=== PATIENT | female | born 1995 | race Caucasian/White ===

== ENCOUNTER 2022-04-18 12:00 | Inpatient (IN) | payer MEDICAID, SELFPAY ==
[2022-04-18 12:03] VITALS: BMI 25.7
[2022-04-18 12:04] VITALS: BP 117/72; PULSE 71; RESP 18; TEMP 36.8; O2SAT 96
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
[2022-04-18 14:00] VITALS: BP 124/78; PULSE 94; RESP 18; TEMP 36.8; O2SAT 98
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
[2022-04-18 20:04] VITALS: BP 109/69; PULSE 86; RESP 18; TEMP 36.8; O2SAT 95
[2022-04-18] MEDS: trazodone 50 mg Tablet PO (20:32)
[2022-04-18] MEDS: BuSPIRONE 10 mg Tablet PO (20:32)
[2022-04-18] MEDS: duloxetine 60 mg Capsule PO (20:32)
[2022-04-19 06:00] VITALS: BP 109/66; PULSE 64; RESP 18; TEMP 36.7; O2SAT 97
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
[2022-04-19 09:59] VITALS: BP 109/66; PULSE 64; RESP 18; TEMP 36.7; O2SAT 97
[2022-04-19] MEDS: BuSPIRONE 10 mg Tablet PO (10:31)
[2022-04-19] MEDS: duloxetine 30 mg Capsule PO (10:31)
== END 2022-04-19 13:00 | disposition home or self-care (01) | DRG 881 ==
PROVIDERS: Admitting Provider Psychiatry & Neurology Psychiatry; Visit Provider Psychiatry & Neurology Psychiatry
DX: F32.9 Major depressive disorder, single episode, unspecified (principal); R45.851 Suicidal ideations; F41.9 Anxiety disorder, unspecified; Z81.1 Family history of alcohol abuse and dependence
CPT/HCPCS: 97165